=== PATIENT | female | born 1940 | race Caucasian/White ===

== ENCOUNTER 2019-07-27 17:46 | Inpatient (IN) | payer MEDICARE ==
[~2019-07-27] VITALS: Ht 162.6 cm; Wt 67.8 kg
[~2019-07-27 17:46] MED LIST: CHOL2000 PO; DICY10CA88 PO; DOCU250C15 PO; HYDR-3717 PO; LIDO700A5 TP; MIRT-92 PO; PANT-47 PO
--- NOTE | 2019-07-27 18:15 | NUR ---
PATIENT IN ROUTE FROM [facility] IN [place]. SOULEYMANE LORENZO RECEIVED REPORT FROM [facility] RN. RECEIVED PATIENT REPORT FROM SOULEYMANE LORENZO. WAS ABLE TO ASK QUESTIONS
--- NOTE | 2019-07-27 20:45 | NUR ---
[place] [facility] [place] Patient arrived in stable condition with all known belongings. patient [facility] to hospital bed and was placed on bedside monitor. no complaints of chest pain, abd discomfort or sob. will continue to monitor
--- NOTE | 2019-07-27 20:45 | NUR ---
PAGED DR. RICO AT THIS TIME PAGER ID: [phone] MESSAGE: ACCM - [phone] (LISY [place]) DIRECT ADMIT FROM SANDRA HAS ARRIVED.
[2019-07-27] MEDS ORDERED: heparin 10,000 units/1 ML INJ IV ONE (20:55)
[2019-07-27] MEDS ORDERED: heparin 10,000 units/1 ML INJ IV PRN (20:55)
[2019-07-27] MEDS ORDERED: OMEP40CA13 PO (21:49)
[2019-07-27 21:51] LABS: BASOPHILS # (AUTO) 0.1 X10'3 (0-0.2); BASOPHILS % (AUTO) 0.6 % (0-1); EOSINOPHILS # (AUTO) 0.1 X10'3 (0-0.9); EOSINOPHILS % (AUTO) 0.6 % (0-6); HEMATOCRIT 45.3 % (35.0-45.0); HEMOGLOBIN 15.2 g/dl (12.0-16.0); LYMPHOCYTES # (AUTO) 2.8 X10'3 (1.1-4.8); LYMPHOCYTES % (AUTO) 22.2 % (21-51); MEAN CORPUSCULAR HEMOGLOBIN 30.9 PG (27.0-31.0); MEAN CORPUSCULAR HGB CONC 33.5 g/dL (33.0-36.5); MEAN CORPUSCULAR VOLUME 92.3 FL (78-98); MEAN PLATELET VOLUME 9.2 FL (7.4-10.4); MONOCYTES % (AUTO) 8.2 % (2-12); NEUTROPHILS # (AUTO) 8.5 X10'3 (1.8-7.7); NEUTROPHILS % (AUTO) 68.4 % (42-75); PARTIAL THROMBOPLASTIN TIME 30 SECONDS (22-32); PLATELET COUNT 390 X10'3 (140-440); RED BLOOD COUNT 4.91 X10'6 (4.20-5.60); RED CELL DISTRIBUTION WIDTH 14.6 % (11.5-14.5); WHITE BLOOD COUNT 12.4 X10'3 (4.5-11.0)
[2019-07-27] MEDS ORDERED: MAGN500C16 PO (21:51)
[2019-07-27] MEDS ORDERED: OSC500T PO (21:53)
[2019-07-27] MEDS ORDERED: CHOL10002 PO (21:54)
[2019-07-27 22:00] VITALS: BP 123/69
[2019-07-27] MEDS ORDERED: potassium Cl 20 mEq SR tablet PO PRN (22:00)
[2019-07-27] MEDS ORDERED: acetaminophen 325mg tablet PO PRN (22:00)
[2019-07-27] MEDS ORDERED: morphine 2 MG/ML inj. syringe IV PRN ×2 (22:00)
[2019-07-27] MEDS ORDERED: mag hydrox/Alum hydrox/simeth 30ml oral suspension PO PRN (22:00)
[2019-07-27] MEDS ORDERED: potassium CL 10mEq/100ml bag 100 ML IV PRN ×2 (22:00)
[2019-07-27] MEDS ORDERED: magnesium 2GM in 50ml NS 50 ML IV PRN (22:00)
[2019-07-27] MEDS ORDERED: magnesium 4gm in 100ml NS 100 ML IV PRN (22:00)
[2019-07-27] MEDS ORDERED: docusate sod 100mg capsule PO PRN (22:00)
[2019-07-27] MEDS ORDERED: metoprolol tartrate 1mg/ml inj IV PRN (22:10)
[2019-07-27] MEDS ORDERED: regadenoson 0.4mg/5ml syringe IV PRN (22:10)
[2019-07-27] MEDS ORDERED: aminophylline 250mg/10ml inj. IV PRN (22:10)
[2019-07-27] MEDS ORDERED: nitroGLYCERIN 0.4mg SUBLingual tab SL PRN (22:10)
[2019-07-27] MEDS: heparin 25,000 UNIT/250ml bag 250 ML IV SCH (22:18)
[2019-07-27] MEDS: normal saline 1000ml 1,000 ML IV SCH (22:25)
[2019-07-27 22:59] LABS: ALANINE AMINOTRANSFERASE 39 U/L (12-78); ALBUMIN 3.9 G/DL (3.4-5.0); ALBUMIN/GLOBULIN RATIO 1.1 (1.1-1.5); ALKALINE PHOSPHATASE 68 IU/L (46-116); ANION GAP 8 (8-16); ASPARTATE AMINO TRANSFERASE 24 U/L (10-37); BILIRUBIN,TOTAL 0.8 MG/DL (0.1-1.0); BLOOD UREA NITROGEN 13 MG/DL (7-18); BUN/CREATININE RATIO 14.1 (6.6-38.0); CALCIUM 9.3 MG/DL (8.5-10.1); CHLORIDE 104 MMOL/L (99-107); CREATININE 0.92 MG/DL (0.40-0.90); GLUCOSE 110 MG/DL (70-104); POTASSIUM 3.4 MMOL/L (3.5-5.1); SODIUM 140 MMOL/L (135-145); TOTAL CARBON DIOXIDE 27.8 MMOL/L (24-32); TOTAL PROTEIN 7.6 G/DL (6.4-8.2); eGFR 59 ML/MIN
[2019-07-27 23:01] LABS: TROPONIN I 1.51 NG/ML (0.0-0.05)
--- NOTE | 2019-07-27 23:03 | NUR ---
PAGED DR. RICO REGARDING CRITICAL TROP PAGER ID: [phone] MESSAGE: CINDY GARCIA [id number] -LISY [place] - CRITICAL TROP 1.51. TRENDING DOWN. LAST ONE AT [place] WAS 1.61. THANKS!!
[2019-07-27] MEDS: atorvastatin 20mg tablet PO SCH (23:58)
[2019-07-27] MEDS: potassium Cl 20 mEq SR tablet PO PRN (23:58)
[2019-07-28] VITALS (21 sets, daily range): BP systolic 95–180; BP diastolic 49–102
[2019-07-28] MEDS: potassium Cl 20 mEq SR tablet PO PRN ×4 (04:55→21:18)
[2019-07-28 05:44] LABS: BASOPHILS # (AUTO) 0.1 X10'3 (0-0.2); BASOPHILS % (AUTO) 0.8 % (0-1); EOSINOPHILS # (AUTO) 0.1 X10'3 (0-0.9); EOSINOPHILS % (AUTO) 1.3 % (0-6); HEMATOCRIT 41.3 % (35.0-45.0); LYMPHOCYTES # (AUTO) 3.5 X10'3 (1.1-4.8); LYMPHOCYTES % (AUTO) 34.2 % (21-51); MEAN CORPUSCULAR HEMOGLOBIN 31.4 PG (27.0-31.0); MEAN CORPUSCULAR HGB CONC 33.8 g/dL (33.0-36.5); MEAN PLATELET VOLUME 9.2 FL (7.4-10.4); MONOCYTES # (AUTO) 0.8 X10'3 (0-0.9); MONOCYTES % (AUTO) 7.7 % (2-12); NEUTROPHILS # (AUTO) 5.8 X10'3 (1.8-7.7); PLATELET COUNT 335 X10'3 (140-440); RED BLOOD COUNT 4.44 X10'6 (4.20-5.60); RED CELL DISTRIBUTION WIDTH 14.5 % (11.5-14.5); WHITE BLOOD COUNT 10.4 X10'3 (4.5-11.0)
[2019-07-28 05:49] LABS: ALANINE AMINOTRANSFERASE 35 U/L (12-78); ALBUMIN 3.4 G/DL (3.4-5.0); ALKALINE PHOSPHATASE 59 IU/L (46-116); ANION GAP 9 (8-16); ASPARTATE AMINO TRANSFERASE 25 U/L (10-37); BILIRUBIN,TOTAL 0.6 MG/DL (0.1-1.0); BLOOD UREA NITROGEN 15 MG/DL (7-18); CALCIUM 8.8 MG/DL (8.5-10.1); CHLORIDE 105 MMOL/L (99-107); CREATININE 0.79 MG/DL (0.40-0.90); GLUCOSE 88 MG/DL (70-104); POTASSIUM 3.3 MMOL/L (3.5-5.1); SODIUM 139 MMOL/L (135-145); TOTAL CARBON DIOXIDE 24.9 MMOL/L (24-32); TOTAL PROTEIN 6.7 G/DL (6.4-8.2); eGFR 71 ML/MIN
[2019-07-28 05:53] LABS: CHOL/HDL RATIO 4.1 (0.00-4.99); CHOLESTEROL 183 MG/DL (0-200); HDL CHOLESTEROL 45 MG/DL (35-60); LDL CHOLESTEROL 128 MG/DL (50-100); MAGNESIUM 2.1 MG/DL (1.5-2.4); TRIGLYCERIDES 112 MG/DL (20-135)
[2019-07-28] MEDS: heparin 25,000 UNIT/250ml bag 250 ML IV SCH (05:55)
--- NOTE | 2019-07-28 06:05 | NUR ---
Patient in room MED 310. I have received report from SOULEYMANE Jimenez and had the opportunity to ask questions and assume patient care.
--- NOTE | 2019-07-28 06:20 | NUR ---
Problems reprioritized. Patient report given, questions answered & plan of care reviewed with SOULEYMANE Bolaños.
[2019-07-28 06:28] LABS: TROPONIN I 0.85 NG/ML (0.0-0.05)
[2019-07-28] MEDS: atorvastatin 20mg tablet PO SCH (08:00)
[2019-07-28] MEDS: magnesium oxide 400mg tablet PO SCH (08:18)
[2019-07-28] MEDS: aspirin 81mg tablet.DR PO SCH (08:20)
[2019-07-28] MEDS: calcium carbonate 500mg tablet PO SCH (08:20)
[2019-07-28] MEDS: vitamin D (cholecalciferol) 1,000 unit tablet PO SCH (08:20)
[2019-07-28] MEDS: pantoprazole 40mg Tablet.DR PO SCH (08:21)
[2019-07-28] MEDS: K and/or MAG REPLACEMENT MC SCH (08:24)
[2019-07-28] MEDS: normal saline 1000ml 1,000 ML IV SCH ×2 (10:28→15:31)
[2019-07-28] MEDS ORDERED: magnesium hydroxide 30ml (MOM) UD suspension PO PRN (10:30)
--- NOTE | 2019-07-28 12:17 | NUR ---
RECEIVED CALL FROM HOSPITALIST REGARDING POSITIVE LEXISCAN. JAYSON AGUILAR PREFORM MACHINE OPERATOR ARRIVED ON UNIT TO SPEAK ON PATIENT ABOUT RESULTS, SHE WAS ALREADY NOTED THE RESULT.
[2019-07-28] MEDS: ondansetron/PF 4mg/2ml inj IV PRN (12:27)
--- NOTE | 2019-07-28 14:05 | NUR ---
PAGER ID: [phone] MESSAGE: [phone] Nayana Weller. Nausea noted, Zofran ineffective. Orders? Tatum [id number]
[2019-07-28] MEDS ORDERED: LIDOcaine/PRILOcaine 5gm cream TP ONE (14:15)
[2019-07-28] MEDS ORDERED: proCHLORperazine 10 MG/2 ml inj IV PRN ×2 (14:35→17:40)
[2019-07-28] MEDS ORDERED: midazolam 2 mg/2 ml injection ONE (15:59)
[2019-07-28] MEDS ORDERED: LIDOcaine 1% (10mg/ml)w/preservative injection 20ml MDV ONE (15:59)
[2019-07-28] MEDS ORDERED: verapamil 2.5 mg/ml inj IV ONE (15:59)
[2019-07-28] MEDS ORDERED: nitroGLYCERIN-Tridil 50MG/D5W 250 ML IV ONE (15:59)
[2019-07-28] MEDS ORDERED: fentaNYL/PF 50MCG/1 ML 2ML syringe ONE (15:59)
[2019-07-28] MEDS ORDERED: iohexol 350MG/ML 100ml bottle IV ONE (16:00)
[2019-07-28] MEDS ORDERED: heparin 1,000unit/ml 10ml vial 10 ML ONE (16:00)
--- NOTE | 2019-07-28 16:12 | NUR ---
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
--- NOTE | 2019-07-28 16:39 | NUR ---
Orientee documentation and med administration: I have reviewed and agree with all interventions, assessments performed and documented by Tatum Guaman
--- NOTE | 2019-07-28 17:05 | NUR ---
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 Patient in room MED 310. I have received report from SOULEYMANE Pizarro and had the opportunity to ask questions and assume patient care.
[2019-07-28] MEDS ORDERED: OXAZEpam 15mg capsule PO PRN (17:40)
[2019-07-28] MEDS ORDERED: HYDROcodone/acetaminophen 5mg/325mg tablet PO PRN (17:40)
[2019-07-28] MEDS ORDERED: HYDROcodone/acetaminophen 10/325mg tab PO PRN (17:40)
--- NOTE | 2019-07-28 18:19 | NUR ---
Problems reprioritized. Patient report given, questions answered & plan of care reviewed with SOULEYMANE Bray and SOULEYMANE Betancourt.
[2019-07-29] VITALS (7 sets, daily range): BP systolic 104–198; BP diastolic 45–95
[2019-07-29 04:53] LABS: BASOPHILS # (AUTO) 0.1 X10'3 (0-0.2); BASOPHILS % (AUTO) 0.7 % (0-1); EOSINOPHILS # (AUTO) 0.1 X10'3 (0-0.9); EOSINOPHILS % (AUTO) 1.2 % (0-6); HEMATOCRIT 37.2 % (35.0-45.0); HEMOGLOBIN 12.5 g/dl (12.0-16.0); LYMPHOCYTES # (AUTO) 3.1 X10'3 (1.1-4.8); MEAN CORPUSCULAR HEMOGLOBIN 31.4 PG (27.0-31.0); MEAN CORPUSCULAR HGB CONC 33.5 g/dL (33.0-36.5); MEAN CORPUSCULAR VOLUME 93.5 FL (78-98); MEAN PLATELET VOLUME 8.8 FL (7.4-10.4); MONOCYTES # (AUTO) 0.9 X10'3 (0-0.9); MONOCYTES % (AUTO) 8.9 % (2-12); NEUTROPHILS # (AUTO) 5.8 X10'3 (1.8-7.7); NEUTROPHILS % (AUTO) 58.2 % (42-75); PLATELET COUNT 292 X10'3 (140-440); RED BLOOD COUNT 3.97 X10'6 (4.20-5.60); RED CELL DISTRIBUTION WIDTH 14.3 % (11.5-14.5)
[2019-07-29 05:04] LABS: ANION GAP 7 (8-16); BLOOD UREA NITROGEN 16 MG/DL (7-18); BUN/CREATININE RATIO 20.3 (6.6-38.0); CALCIUM 8.4 MG/DL (8.5-10.1); CHLORIDE 111 MMOL/L (99-107); CREATININE 0.79 MG/DL (0.40-0.90); GLUCOSE 94 MG/DL (70-104); POTASSIUM 4.2 MMOL/L (3.5-5.1); SODIUM 143 MMOL/L (135-145); TOTAL CARBON DIOXIDE 25.5 MMOL/L (24-32); eGFR 71 ML/MIN
[2019-07-29 05:05] LABS: ALANINE AMINOTRANSFERASE 30 U/L (12-78); ALBUMIN 3.1 G/DL (3.4-5.0); ALBUMIN/GLOBULIN RATIO 1.1 (1.1-1.5); ALKALINE PHOSPHATASE 52 IU/L (46-116); ASPARTATE AMINO TRANSFERASE 13 U/L (10-37); BILIRUBIN,TOTAL 0.5 MG/DL (0.1-1.0)
--- NOTE | 2019-07-29 06:15 | NUR ---
Patient in room MED 310. I have received report from SOULEYMANE Betancourt 'O' and SOULEYMANE Bray and had the opportunity to ask questions and assume patient care.
--- NOTE | 2019-07-29 06:27 | NUR ---
Gave report to Pita. Answered all the questions.
--- NOTE | 2019-07-29 06:28 | NUR ---
I have reviewed and agree with all interventions, assessments performed and documented by Federico.
[2019-07-29] MEDS: pantoprazole 40mg Tablet.DR PO SCH (07:51)
[2019-07-29] MEDS: magnesium oxide 400mg tablet PO SCH (07:52)
[2019-07-29] MEDS: calcium carbonate 500mg tablet PO SCH (07:52)
[2019-07-29] MEDS: vitamin D (cholecalciferol) 1,000 unit tablet PO SCH (07:53)
[2019-07-29] MEDS: aspirin 81mg tablet.DR PO SCH (07:54)
[2019-07-29] MEDS: K and/or MAG REPLACEMENT MC SCH (07:59)
[2019-07-29] MEDS: atorvastatin 20mg tablet PO SCH (08:00)
[2019-07-29 08:33] LABS: D-DIMER 0.36 MG/L FEU (0-0.50)
[2019-07-29] MEDS: ondansetron/PF 4mg/2ml inj IV PRN (09:34)
--- NOTE | 2019-07-29 10:00 | NUR ---
PER NURSE SOULEYMANE LORENZO - WAS INFORMED BY NURSE RIG MANAGER THAT PATIENT STATED DAUGHTER GAVE SL ZOFRAN AFTER IV ZOFRAN WAS GIVEN. SOULEYMANE LORENZO IMMEDIATELY WENT IN AND GAVE EDUCATION ABOUT IMPORTANCE OF NOT TAKING MEDICATION BROUGHT IN FROM HOME.
[2019-07-29] MEDS ORDERED: iohexol 350MG/ML 100ml bottle IV ONE (12:16)
--- NOTE | 2019-07-29 12:38 | NUR ---
PAGER ID: [phone] MESSAGE: Dr. Ortiz-Patient in room 310, Ana Rosa Strickland is having SBP 190s and 200s for the last hour. Patient did not go to have CHEST CT yet due to BP. Please adviseMasood RN [id number]
[2019-07-29] MEDS ORDERED: hydrALAZINE 20mg/ml inj. IV ONE ×3 (12:45→13:25)
--- NOTE | 2019-07-29 12:47 | NUR ---
PAGER ID: [phone] MESSAGE: Dr. Ortiz, pt Ana Rosa Weller rm 310 ACCE Creatinine level of 0.79 from labs on 07/29/19 per your request. Masood Gaston RN ACCE
--- NOTE | 2019-07-29 13:42 | NUR ---
PAGER ID: [phone] MESSAGE: Dr. Ortiz, pt Ana Rosa Weller rm 310, given 2 doses of Hydralazine 5mg IVP per your orders. BP decreased to 166/86. HR of 108, FYI. Please advise further. Thank you, Ana Rosa Vyas RN
--- NOTE | 2019-07-29 16:53 | NUR ---
PAGER ID: [phone] MESSAGE: Dr. Ortiz, The family member of Ana Rosa Brantley in rm 310, is in the room with the patient and would like to speak with you. Thank you for your help with this. Ana Rosa Vyas RN [id number]
--- NOTE | 2019-07-29 16:53 | NUR ---
Patient's family are looking for answers regarding this patient. They report that this patient has been having stomach problems for several months. She has been having nausea and vomiting during this shift and I have administered 1 dose of Zofran and a dose of Compazine. See Emar for doses.
[2019-07-30 02:00] VITALS: BP 113/57
[2019-07-30 02:41] LABS: BASOPHILS # (AUTO) 0.1 X10'3 (0-0.2); BASOPHILS % (AUTO) 0.4 % (0-1); EOSINOPHILS # (AUTO) 0.1 X10'3 (0-0.9); EOSINOPHILS % (AUTO) 0.6 % (0-6); HEMATOCRIT 40.2 % (35.0-45.0); HEMOGLOBIN 13.3 g/dl (12.0-16.0); LYMPHOCYTES # (AUTO) 3.2 X10'3 (1.1-4.8); LYMPHOCYTES % (AUTO) 27.1 % (21-51); MEAN CORPUSCULAR HEMOGLOBIN 30.9 PG (27.0-31.0); MEAN CORPUSCULAR HGB CONC 33.1 g/dL (33.0-36.5); MEAN CORPUSCULAR VOLUME 93.2 FL (78-98); MEAN PLATELET VOLUME 9.1 FL (7.4-10.4); MONOCYTES # (AUTO) 1.1 X10'3 (0-0.9); MONOCYTES % (AUTO) 9.4 % (2-12); NEUTROPHILS # (AUTO) 7.4 X10'3 (1.8-7.7); NEUTROPHILS % (AUTO) 62.5 % (42-75); PLATELET COUNT 304 X10'3 (140-440); RED BLOOD COUNT 4.31 X10'6 (4.20-5.60); RED CELL DISTRIBUTION WIDTH 14.4 % (11.5-14.5); WHITE BLOOD COUNT 11.9 X10'3 (4.5-11.0)
[2019-07-30 02:58] LABS: ALANINE AMINOTRANSFERASE 34 U/L (12-78); ALBUMIN 3.5 G/DL (3.4-5.0); ALBUMIN/GLOBULIN RATIO 1.1 (1.1-1.5); ALKALINE PHOSPHATASE 60 IU/L (46-116); ANION GAP 10 (8-16); ASPARTATE AMINO TRANSFERASE 19 U/L (10-37); BILIRUBIN,TOTAL 0.7 MG/DL (0.1-1.0); BLOOD UREA NITROGEN 11 MG/DL (7-18); BUN/CREATININE RATIO 12.8 (6.6-38.0); CALCIUM 9.4 MG/DL (8.5-10.1); CHLORIDE 104 MMOL/L (99-107); CREATININE 0.86 MG/DL (0.40-0.90); GLUCOSE 96 MG/DL (70-104); POTASSIUM 3.1 MMOL/L (3.5-5.1); SODIUM 140 MMOL/L (135-145); TOTAL CARBON DIOXIDE 25.9 MMOL/L (24-32); TOTAL PROTEIN 6.7 G/DL (6.4-8.2); eGFR 64 ML/MIN
--- NOTE | 2019-07-30 04:31 | NUR ---
patient refused potassium replacement tablet. patient potassium level was 3.1. Addendum: 07/30/19 at 0436 by Asa De RN Patient stated that she will not take any medication until she eats breakfast despite explaining how important is to replace the potassium level. She acknowledged but refused to take the medication.
[2019-07-30 06:00] VITALS: BP 97/49
--- NOTE | 2019-07-30 06:05 | NUR ---
Patient in room MED 310. I have received report from SOULEYMANE Bray and had the opportunity to ask questions and assume patient care.
--- NOTE | 2019-07-30 06:22 | NUR ---
Gave report to Marko. Answered all the questions.
[2019-07-30] MEDS: atorvastatin 20mg tablet PO SCH (08:00)
[2019-07-30] MEDS: vitamin D (cholecalciferol) 1,000 unit tablet PO SCH (08:07)
[2019-07-30] MEDS: aspirin 81mg tablet.DR PO SCH (08:07)
[2019-07-30] MEDS: potassium Cl 20 mEq SR tablet PO PRN ×2 (08:08→13:43)
[2019-07-30] MEDS: magnesium oxide 400mg tablet PO SCH (08:08)
[2019-07-30] MEDS: calcium carbonate 500mg tablet PO SCH (08:08)
[2019-07-30] MEDS: pantoprazole 40mg Tablet.DR PO SCH (08:08)
[2019-07-30] MEDS: K and/or MAG REPLACEMENT MC SCH (08:09)
[2019-07-30 11:00] VITALS: BP 125/67
--- NOTE | 2019-07-30 12:46 | NUR ---
PAGER ID: [phone] MESSAGE: 310: FELIX - anxious to see you. patient ready for d/c. thank you nurse nella/yi [phone]
[2019-07-30] MEDS ORDERED: ATOR20TA66 PO (13:42)
[2019-07-30] MEDS ORDERED: ASPI-1071 PO (13:42)
[2019-07-30] MEDS ORDERED: ENAL5TAB77 PO (13:46)
--- NOTE | 2019-07-30 15:09 | NUR ---
Patient for discharge per MD orders, all discharge instructions reviewed with patient and all questions answered. New rx called in to [facility] on [facility]. PIV discontinued with cannula intact; clean, dry dressing in place. traffic monitor specialist removed. All personal belongings collected and sent with patient. Patient ambulated to private vehicle with RN at 1500, to be transported home by family.
== END 2019-07-30 15:00 | disposition home or self-care (01) | DRG 282 ==
LOC: MED 3N 17:46
PROVIDERS: ADMIT Family Medicine; ATTEND Internal Medicine
PROC: 4A02XM4 Measurement of Cardiac Total Activity, External Approach (ICD-10-PCS; principal; 2019-07-28)
PROC: 3E033HZ Introduction of Radioactive Substance into Peripheral Vein, Percutaneous Approach (ICD-10-PCS; 2019-07-28)
PROC: 4A023N7 Measurement of Cardiac Sampling and Pressure, Left Heart, Percutaneous Approach (ICD-10-PCS; 2019-07-28)
PROC: B2111ZZ Fluoroscopy of Multiple Coronary Arteries using Low Osmolar Contrast (ICD-10-PCS; 2019-07-28)
PROC: B2151ZZ Fluoroscopy of Left Heart using Low Osmolar Contrast (ICD-10-PCS; 2019-07-28)
PROC: B32T1ZZ Computerized Tomography (CT Scan) of Left Pulmonary Artery using Low Osmolar Contrast (ICD-10-PCS; 2019-07-29)
PROC: B3201ZZ Computerized Tomography (CT Scan) of Thoracic Aorta using Low Osmolar Contrast (ICD-10-PCS; 2019-07-29)
PROC: B32S1ZZ Computerized Tomography (CT Scan) of Right Pulmonary Artery using Low Osmolar Contrast (ICD-10-PCS; 2019-07-29)
DX: I21.4 Non-ST elevation (NSTEMI) myocardial infarction (principal); E78.5 Hyperlipidemia, unspecified; F32.9 Major depressive disorder, single episode, unspecified; F41.9 Anxiety disorder, unspecified; E87.6 Hypokalemia; G89.29 Other chronic pain; K21.9 Gastro-esophageal reflux disease without esophagitis; K58.1 Irritable bowel syndrome with constipation; Z80.0 Family history of malignant neoplasm of digestive organs; Z88.1 Allergy status to other antibiotic agents; Z88.8 Allergy status to other drugs, medicaments and biological substances; Z80.8 Family history of malignant neoplasm of other organs or systems; Z87.891 Personal history of nicotine dependence; Z90.711 Acquired absence of uterus with remaining cervical stump
CPT/HCPCS: 36415; 71045; 71260; 78452; 80053; 80061; 83735; 84484; 85025; 85379; 85610; 85730; 87081; 93005; 93017; 93306; 93458; 99152; A4620; A6258; A9500; C1769; C1894; G0378; J0280; J0360; J0780; J1644; J2001; J2250; J2405; J2785; J3010; J3490; J7030; Q9967

== ENCOUNTER 2020-11-30 13:40 | Outpatient (CLI) | payer MEDICARE ==
[~2020-11-30 13:40] MED LIST changes: +ASPI-1071 PO; +ATOR20TA66 PO; +CHOL10002 PO; -CHOL2000 PO; -DICY10CA88 PO; -DOCU250C15 PO; +ENAL5TAB77 PO; -HYDR-3717 PO; -LIDO700A5 TP; +MAGN500C16 PO; -MIRT-92 PO; +OMEP40CA13 PO; +OSC500T PO; -PANT-47 PO
== END 2020-11-30 23:59 | disposition home or self-care (01) ==
LOC: RT 13:40
PROVIDERS: ATTEND Internal Medicine
DX: J44.9 Chronic obstructive pulmonary disease, unspecified (principal)
CPT/HCPCS: 85018; 94010; 94727; 94729